=== PATIENT | male | born 1995 | race Caucasian/White ===

== ENCOUNTER 2016-09-30 23:10 | Emergency (ER) | payer BC ==
[~2016-09-30] VITALS: Ht 188 cm; Wt 90.9 kg
[~2016-09-30 23:10] MED LIST: PREDNISONE20 MG PO
[2016-09-30 23:24] VITALS: TEMP 98
[2016-09-30] MEDS ORDERED: ZOLOFT 100MG100 MG PO (23:28)
[2016-09-30] MEDS ORDERED: ZOFRAN8 MG PO (23:50)
[2016-10-01 00:11] LABS: CREATININE, serum 0.82 mg/dL (0.66-1.25); POTASSIUM 3.6 mmol/L (3.4-5.0)
[2016-10-01 01:21] VITALS: BP 124/72; PULSE 53
== END 2016-10-01 01:39 | disposition home or self-care (01) ==
LOC: COL.ER 23:10
PROVIDERS: Emergency Medicine
DX: R10.13 Epigastric pain (principal); E86.9 Volume depletion, unspecified; R11.10 Vomiting, unspecified; R19.7 Diarrhea, unspecified
CPT/HCPCS: C9113; J1170; J1885; J2405; J7030

== ENCOUNTER 2017-06-24 11:59 | Emergency (ER) | payer BC ==
[~2017-06-24] VITALS: Ht 188 cm; Wt 86.4 kg
[~2017-06-24 11:59] MED LIST changes: +ZOFRAN8 MG PO; +ZOLOFT 100MG100 MG PO
[2017-06-24 12:02] VITALS: TEMP 98.9
[2017-06-24] MEDS ORDERED: PAXIL 20MG20 MG PO (12:05)
[2017-06-24] MEDS ORDERED: KLONOPIN WAFE0.25 MG PO (12:06)
[2017-06-24 12:49] LABS: HEMATOCRIT 43.8 % (42.0-52.0); HEMOGLOBIN 15.6 g/dl (13.5-18.0); MEAN CELL VOLUME 91 fl (80.0-100.0); MEAN CORPUSCULAR HEMOGLOBIN 32 pg (27.0-31.0); MEAN CORPUSCULAR HGB CONC 36 g/dl (33.0-37.0); MEAN PLATELET VOLUME 9.7 fl (7.4-10.4); PLATELET COUNT 158 K/mm3 (130-400); RED BLOOD COUNT 4.83 M/mm3 (4.20-5.60); WHITE BLOOD COUNT 5.5 K/mm3 (4.8-10.8)
[2017-06-24 12:51] LABS: ADD PATHOLOGY DIFF REVIEW NO
[2017-06-24 13:03] LABS: ADJUSTED CALCIUM 8.7 mg/dL (8.4-10.2); ALBUMIN 4.7 gm/dL (3.5-5.0); BILIRUBIN,TOTAL 1.4 mg/dL (0.0-1.0); CALCIUM 9.3 mg/dL (8.4-10.2); CREATININE, serum 0.78 mg/dL (0.66-1.25); POTASSIUM 3.8 mmol/L (3.4-5.0); TOTAL PROTEIN 8.1 gm/dL (6.4-8.2)
[2017-06-24 13:22] LABS: BAND 27 % (0-10); EOSINOPHIL 3 % (0-4); NEUTROPHILS 29 % (42.0-75.2); PLATELET ESTIMATE NORMAL (NORMAL); TOTAL CELLS COUNTED 100
[2017-06-24] MEDS ORDERED: ZOFRAN 4MG T4 MG/TAB PO (14:45)
[2017-06-24 15:04] VITALS: BP 129/89; PULSE 80
== END 2017-06-24 15:04 | disposition home or self-care (01) ==
LOC: COL.ER 11:59
PROVIDERS: Physician Assistant Medical
DX: R11.2 Nausea with vomiting, unspecified (principal); F12.10 Cannabis abuse, uncomplicated; F17.210 Nicotine dependence, cigarettes, uncomplicated; Z90.89 Acquired absence of other organs; Z98.890 Other specified postprocedural states
CPT/HCPCS: J2405; J7030

== ENCOUNTER 2018-02-07 09:34 | Emergency (ER) | payer BC ==
[~2018-02-07] VITALS: Ht 188 cm; Wt 86.4 kg
[~2018-02-07 09:34] MED LIST changes: +KLONOPIN WAFE0.25 MG PO; +PAXIL 20MG20 MG PO; +ZOFRAN 4MG T4 MG/TAB PO
[2018-02-07 09:36] VITALS: TEMP 98.6
[2018-02-07 10:08] LABS: BASO # 0.1 (0.0-0.2); BASO % 0.8 % (0.0-2.0); EOS # 0.1 (0.0-0.7); EOS % 1.1 % (0-4.0); GRAN # 4.4 (1.4-6.5); GRAN % 67.8 % (42.2-75.2); HEMATOCRIT 42.7 % (42.0-52.0); HEMOGLOBIN 15.3 g/dl (13.5-18.0); LYMPH # 1.3 (1.2-3.4); LYMPH % 20.7 % (20.0-51.0); MEAN CELL VOLUME 88 fl (80.0-100.0); MEAN CORPUSCULAR HEMOGLOBIN 32 pg (27.0-31.0); MEAN CORPUSCULAR HGB CONC 36 g/dl (33.0-37.0); MEAN PLATELET VOLUME 9.2 fl (7.4-10.4); MONO # 0.6 (0.1-0.6); MONO % 9.3 % (1.7-9.3); PLATELET COUNT 238 K/mm3 (130-400); RED BLOOD COUNT 4.85 M/mm3 (4.20-5.60); REDCELL DISTRIBUTION WIDTH-CV 11.9 % (11.5-14.5)
[2018-02-07 10:23] LABS: PROTHROMBIN TIME 11.9 SECONDS (9.7-12.8)
[2018-02-07 10:26] LABS: ALANINE AMINOTRANSFERASE 25 U/L (21-72); ALBUMIN 4.8 gm/dL (3.5-5.0); ALKALINE PHOSPHATASE 96 U/L (50-136); ANION GAP 16 mmol/L (7-16); AST,SGOT 37 U/L (15-37); BILIRUBIN,TOTAL 1.1 mg/dL (0.0-1.0); BLOOD UREA NITROGEN 12 mg/dL (9-20); CALCIUM 9.9 mg/dL (8.4-10.2); CARBON DIOXIDE 23 mmol/L (22-30); CHLORIDE 105 mmol/L (98-107); CREATININE, serum 0.84 mg/dL (0.66-1.25); GLUCOSE 108 mg/dL (74-106); POTASSIUM 3.8 mmol/L (3.4-5.0); SODIUM 144 mmol/L (137-145)
[2018-02-07 10:38] LABS: TROPONIN-I < 0.012 ng/mL (0.000-0.034)
[2018-02-07 10:57] LABS: ACETAMINOPHEN < 10 ug/mL (10-30); ALCOHOL(ethanol),MEDICAL < 10 mg/dL; SALICYLATE < 1.0 mg/dL
[2018-02-07 11:59] VITALS: BP 137/78; PULSE 92
== END 2018-02-07 12:01 | disposition home or self-care (01) ==
LOC: COL.ER 09:34
PROVIDERS: Emergency Medicine
DX: R20.2 Paresthesia of skin (principal); R07.89 Other chest pain; F41.9 Anxiety disorder, unspecified; Z90.89 Acquired absence of other organs
CPT/HCPCS: J1630; J2060; J7030

== ENCOUNTER → 2018-06-05 | Outpatient (CLI) | payer BC | LOC: COL.RAD 14:52 | DX: S83.005A Unspecified dislocation of left patella, initial encounter (principal) ==